=== PATIENT | female | born 1975 | race Caucasian/White ===

== ENCOUNTER 2017-03-03 20:00 | Emergency (ER) | payer OTHER ==
--- NOTE | 2017-03-03 20:59 | UC ---
Upper Extremity HPI - HPI Summary HPI Summary: Pt reports tripping on curb and falling onto side walk, c/ o left elbow and hand pain. - History of Current Complaint Chief Complaint: UCTrauma Stated Complaint: S/P FALL LEFT ARM, RIGHT KNEE, RIGHT HAND Time Seen by Provider: 03/03/17 20:41 Hx Last Menstrual Period: 2008 ?: No Onset/Duration: Sudden Onset, Lasting Hours Severity Initially: Moderate Severity Currently: Mild Location Of Pain: Is Discrete @ - left elbow and left index finger MP joint Character: Sharp, Throbbing Aggravating Factor(s): Movement Alleviating Factor(s): Ice Associated Signs And Symptoms: Positive: Swelling, Other - abrasion - Risk Factors Non-Orthopedic Risk Factor: Negative DVT Risk Factors: Negative Septic Arthritis Risk Factor: Negative - Allergies/Home Medications Allergies/Adverse Reactions: Allergies Allergy/AdvReac Type Severity Reaction Status Date / Time Codeine Allergy Rash Verified 03/03/17 20:47 [From Tylenol with Codeine #3] Ketorolac Tromethamine Allergy Vomiting Verified 03/03/17 20:47 [From Toradol] NSAIDs Allergy Headache Verified 03/03/17 20:47 Tramadol Allergy Vomiting Verified 03/03/17 20:47 ASPERTAME Allergy SEVERE Uncoded 03/03/17 20:47 HEADACHES Home Medications: Home Medications NK [No Home Medications Reported] 03/03/17 [History Confirmed 03/03/17] PMH/Surg Hx/FS Hx/Imm Hx Previously Healthy: Yes - Surgical History Surgical History: Yes Surgery Procedure, Year, and Place: 05/2015 - exp lap of abd repair of gastric bypass and lysis of adhesions. 4 Lt KNEE REPAIR; 2 Rt KNEE; GASTRIC BYPASS; GALLBLADDER; BOWEL OBSTRUCTION Xs3;APPENDECTOMY; 3- OVARIAN CYST REMOVED; HYSTERECTOMY; Rt WRIST-TENDON RELEASE; R shoulder tendon release - Family History Known Family History: Positive: Hypertension - Social History Occupation: Works From/At Home Lives: With Family Alcohol Use: None Substance Use Type: None Smoking Status (MU): Never Smoked Tobacco Have You Smoked in the Last Year: No - Immunization History Most Recent Influenza Vaccination: Fall 2014 Review of Systems Constitutional: Negative Skin: Other - abrasion, superficial Eyes: Negative ENT: Negative Respiratory: Negative Cardiovascular: Negative Gastrointestinal: Negative Genitourinary: Negative Motor: Decreased ROM - left elbow Neurovascular: Negative Musculoskeletal: Arthralgia, Myalgia - left elbow and left index finger Neurological: Negative Psychological: Negative Is Patient Immunocompromised?: No All Other Systems Reviewed And Are Negative: Yes Physical Exam Triage Information Reviewed: Yes Appearance: Well-Appearing Vital Signs: Initial Vital Signs Temp 97.4 F 03/03/17 20:42 Pulse 78 03/03/17 20:42 Resp 14 03/03/17 20:42 Pulse Ox 100 03/03/17 20:42 Eye Exam: Normal ENT Exam: Normal Neck exam: Normal Respiratory Exam: Normal Cardiovascular Exam: Normal Musculoskeletal Exam: Other Musculoskeletal: Positive: ROM Limited @ - left elbow Neurological Exam: Normal Psychological Exam: Normal Skin Exam: Other - abrasion right knee, left elbow Upper Extremity Course/Dx - Course Course Of Treatment: Left elbow: IMPRESSION: NO ACUTE BONY FINDINGS. Left hand : IMPRESSION: NO ACUTE BONY FINDINGS. - Differential Dx/Diagnosis Differential Diagnosis/HQI/PQRI: Contusion, Fracture (Closed) Provider Diagnoses: contusion left elbow. contusion left hand. abrasion right knee. Left elbow: IMPRESSION: NO ACUTE BONY FINDINGS. Left hand: IMPRESSION : NO ACUTE BONY FINDINGS.
--- NOTE | 2017-03-03 21:24 | RAD ---
INDICATION: Left elbow injury COMPARISON: None TECHNIQUE: AP, lateral, and oblique views were obtained. FINDINGS: There are mild irregularities but the lateral condyle consistent with epicondylitis. There are no acute bony findings. The elbow articulates normally. There is no joint effusion.. IMPRESSION: NO ACUTE BONY FINDINGS.
--- NOTE | 2017-03-03 21:25 | RAD ---
INDICATION: Left hand injury COMPARISON: None TECHNIQUE: AP and lateral views were obtained. FINDINGS: There is no acute fracture. There is moderate interphalangeal joint space narrowing. The soft tissues are intact. IMPRESSION: NO ACUTE BONY FINDINGS.
[2017-03-03 21:36] VITALS: BP 160/110
== END 2017-03-03 21:36 | disposition home or self-care (01) ==
LOC: UCCORT 20:00
DX: S50.02XA Contusion of left elbow, initial encounter (principal); S60.222A Contusion of left hand, initial encounter; S80.212A Abrasion, left knee, initial encounter; W01.0XXA Fall on same level from slipping, tripping and stumbling without subsequent striking against object, initial encounter; Z88.5 Allergy status to narcotic agent; Z88.8 Allergy status to other drugs, medicaments and biological substances
CPT/HCPCS: 99211; G0463